=== PATIENT | female | born 1950 | race Caucasian/White ===

== ENCOUNTER 2016-05-22 10:50 | Emergency (ER) | payer MEDICARE ==
[~2016-05-22] VITALS: Ht 149.9 cm; Wt 72.1 kg
[~2016-05-22 10:50] MED LIST: AMBI10TA PO; CALTTAB5 PO; DIAZ10 PO; HYDR10TA16 PO; MEDR4PAK3 PO; METH10TA OR; METH10TA PO; METO25CR OR; METR0.7537 TOP; OMEP20CA5 PO; SUPETAB30 PO; TIZA4CAP PO; TUMS500C PO; VITA100018 OR; ZANTTAB9 PO; ZOLP10TA3; forteo IM
[2016-05-22 10:53] VITALS: BP 140/67; PULSE 72; RESP 18; TEMP 98.8; O2SAT 96
[2016-05-22] MEDS ORDERED: FLUT1SPR5 EACH NARE (11:30)
[2016-05-22] MEDS ORDERED: ZOFR8TAB PO (11:30)
[2016-05-22] MEDS ORDERED: MODA200T12 PO (11:30)
[2016-05-22] MEDS ORDERED: OXYC-395 PO (11:30)
[2016-05-22] MEDS ORDERED: SODIUM CHLORIDE 0.9% FLUSH 5 ML FLUSH IVF PRN (11:30)
[2016-05-22] MEDS ORDERED: DIAZ10 PO (11:30)
[2016-05-22] MEDS ORDERED: MAGICADU2 SWISH-SWAL (11:30)
[2016-05-22] MEDS ORDERED: LIDO1SOL8 SWISH-SWAL (11:30)
[2016-05-22] MEDS ORDERED: METO25TA6 PO (11:30)
[2016-05-22] MEDS ORDERED: ALBUAER3 INH (11:30)
[2016-05-22] MEDS ORDERED: REST0.05 EACH EYE (11:30)
[2016-05-22] MEDS ORDERED: NEUP480I2 SQ (11:30)
[2016-05-22] MEDS ORDERED: ACYC400T PO (11:30)
[2016-05-22] MEDS ORDERED: PRIL20CA9 PO (11:30)
[2016-05-22] MEDS ORDERED: ESTR0.5T PO (11:30)
[2016-05-22] MEDS ORDERED: METH10TA PO (11:30)
[2016-05-22] MEDS ORDERED: ESTR1TAB PO (11:30)
--- NOTE | 2016-05-22 11:35 | PD ---
HPI Chief Complaint: General Weakness Time Seen by Provider: 11:02 Travel History International Travel<30 days: No Contact w/Intl Traveler<30days: No Traveled to known affect area: No History of Present Illness HPI Is a 66-year-old woman who presents to the emergency department complaining of several days' worth of sharp left-sided chest pain, as well as some right sided chest pains, as well as tingling in her arms and her legs. Symptoms been on and off. She has multiple somatic complaints daily but feels this is different than any that pains are symptoms she typically has. States he can't place but it's from. There is no clear precipitants except that she noticed it a couple times when she was bending and twisting while working on her laptop. Symptoms lasted about 15-30 minutes and the come on. She has no history of coronary artery disease. She has extensive cardiac workups in the past for what sounds like palpitations that ended up being some trigeminy or bigeminy. She had a chemical stress test 2 years ago that was negative. She has AML which is in remission and she has mild dysplastic syndrome for which she gets Neupogen weekly. He otherwise has felt generally weak for the past week as well. History Past Medical History Narrative Medical History of AML in remission, myelodysplastic syndrome, receives Neupogen weekly , follows with Dr. Florez Previous diagnosis of "trigeminy" on EP study, takes metoprolol for suppression Hyperlipidemia LMP: MATTIE Menopausal: Yes Social History Alcohol Use: No Tobacco Use: No Allergies-Medications (Allergen,Severity, Reaction): Coded Allergies: Sudafed (Verified Allergy, Severe, TACHYCARDIA, ANXIETY, 05/22/16) Xylocaine (Verified Allergy, Mild, SWELLING, TURN PURPLE, 05/22/16) Ephedrine (Verified Allergy, Unknown, 05/22/16) Latex (Verified Allergy, Unknown, 05/22/16) SPINA BIFIDA Uncoded Allergies: ENABLEX (Allergy, Severe, SYNCOPE, CONFUSION, 07/12/07) Reported Meds & Prescriptions Reported Meds & Active Scripts Active Reported Estradiol 1 Mg Tab 1 Mg PO DAILY Estradiol 0.5 Mg Tab 0.5 Mg PO DAILY Oxycodone (Oxycodone HCl) 10 Mg Tab 10 Mg PO Q6HR Methadone (Methadone HCl) 10 Mg Tab 25 Mg PO BID Metoprolol Succinate ER 24 HR (Metoprolol Succinate) 25 Mg Tab 25 Mg PO DAILY Restasis Opth Drops (Cyclosporine Opth Drops) 0.05% Emul 1 Drop EACH EYE BID Neupogen Inj (Filgrastim) 480 Mcg/0.8 Ml Syr 480 Mcg SQ WEEKLY Proair Hfa 8.5 GM Inh (Albuterol Sulfate) 90 Mcg/Act Aer 2 Puff INH Q4-6H PRN 108 mcg/actuation Flonase Nasal [place] (Fluticasone Nasal [place]) 50 Mcg/Act [place] 50 Mcg EACH NARE BID Valium (Diazepam) 10 Mg Tab 10 Mg PO TID PRN Acyclovir 400 Mg Tab 400 Mg PO BID Prilosec (Omeprazole) 20 Mg Cap 20 Mg PO DAILY Modafinil 200 Mg Tab 200 Mg PO BID Zofran (Ondansetron HCl) 8 Mg Tab 8 Mg PO TID PRN Lidocaine Viscous Liq 2 % Liqd 5 Ml SWISH-SWAL DIRECTED PRN Magic Mouthwash Adult Liq (Multi-Ingredient Mouthwash/Gargle) 120 Ml Susp 5 Ml SWISH-SWAL ACHS Each 5mL contains: Nystatin 200,000units, Diphenhydramine 4.25mg, Viscous Lidocaine 10mg, Fry syrup 0.8 mL Review of Systems Except as stated in HPI: all other systems reviewed are Neg Physical Exam Narrative GENERAL: Pleasant 66-year-old woman, very talkative, no acute distress. SKIN: Warm and dry. HEAD: Atraumatic. Normocephalic. EYES: Pupils equal and round. No scleral icterus. No injection or drainage. ENT: No nasal bleeding or discharge. Mucous membranes pink and moist. NECK: Trachea midline. No JVD. CARDIOVASCULAR: Regular rate and rhythm. No murmur appreciated. Tenderness in the anterior chest wall. RESPIRATORY: No accessory muscle use. Clear to auscultation. Breath sounds equal bilaterally. GASTROINTESTINAL: Abdomen soft, non-tender, nondistended. Hepatic and splenic margins not palpable. MUSCULOSKELETAL: No obvious deformities. No edema. NEUROLOGICAL: Awake and alert. No obvious cranial nerve deficits. Motor grossly within normal limits. Normal speech. Data Data Last Documented VS Vital Signs Date Time Temp Pulse Resp B/P Pulse Ox O2 Delivery O2 Flow Rate FiO2 05/22/16 11:56 64 20 138/75 99 05/22/16 10:53 98.8 Orders Electrocardiogram (05/22/16 11:28) Complete Blood Count With Diff (05/22/16 11:28) Comprehensive Metabolic Panel (05/22/16 11:28) Troponin I (05/22/16 11:28) Lipase (05/22/16 11:28) Ecg Monitoring (05/22/16 11:28) Iv Access Insert/Monitor (05/22/16 11:28) Oximetry (05/22/16 11:28) Oxygen Administration (05/22/16 11:28) Sodium Chloride 0.9% Flush (Ns Flush) (05/22/16 11:30) Chest, Pa & Lat (05/22/16 11:28) Urinalysis - C+S If Indicated (05/22/16 11:28) Urine Culture (05/22/16 11:40) Labs Laboratory Tests Test 05/22/16 11:40 White Blood Count 4.2 TH/MM3 Red Blood Count 3.68 MIL/MM3 Hemoglobin 12.7 GM/DL Hematocrit 38.1 % Mean Corpuscular Volume 103.7 FL Mean Corpuscular Hemoglobin 34.6 PG Mean Corpuscular Hemoglobin 33.4 % Concent Red Cell Distribution Width 15.2 % Platelet Count 77 TH/MM3 Mean Platelet Volume 9.8 FL Neutrophils (%) (Auto) % CBC Comment AUTO DIFF Urine Color YELLOW Urine Turbidity CLEAR Urine pH 6.0 Urine Specific Pierce 1.024 Urine Protein NEG mg/dL Urine Glucose (UA) NEG mg/dL Urine Ketones NEG mg/dL Urine Occult Blood SMALL Urine Nitrite NEG Urine Bilirubin NEG Urine Leukocyte Esterase NEG Urine RBC 4-9 /hpf Urine WBC 0-2 /hpf Urine Squamous Epithelial 0-5 /hpf Cells Urine Bacteria MOD /hpf Urine Mucus MOD /lpf Microscopic Urinalysis Comment CULTURE INDICATED Sodium Level 142 MEQ/L Potassium Level 3.9 MEQ/L Chloride Level 104 MEQ/L Carbon Dioxide Level 30.1 MEQ/L Anion Gap 8 MEQ/L Blood Urea Nitrogen 8 MG/DL Creatinine 0.84 MG/DL Estimat Glomerular Filtration 68 ML/MIN Rate Random Glucose 91 MG/DL Calcium Level 8.7 MG/DL Total Bilirubin 0.5 MG/DL Aspartate Amino Transf 14 U/L (AST/SGOT) Alanine Aminotransferase 17 U/L (ALT/SGPT) Alkaline Phosphatase 59 U/L Troponin I LESS THAN 0.02 NG/ML Total Protein 7.3 GM/DL Albumin 3.5 GM/DL Lipase 67 U/L [facility] Medical Decision Making Medical Screen Exam Complete: Yes Emergency Medical Condition: Yes Interpretation(s) CBC unremarkable CMP unremarkable Troponin negative Lipase negative UA with a little bit hematuria, moderate bacteria, no pyuria. Sent for culture. Chest x-ray negative My review of EKG sinus bradycardia at 58, leftward axis, normal intervals, inferior Q waves, no other evidence of acute ischemia. Differential Diagnosis Chest wall pain, ACS, PE, strain or sprain, anxiety, other Narrative Course Medical decision making This 66-year-old woman who presents to the emergency department with intermittent chest pain. Symptoms are nonexertional. Symptoms brought on by certain movements. She would suggest a musculoskeletal etiology. Patient is somewhat somatically preoccupied, little bit unusual and brings stacks of papers with her to telemetry her medical history and often goes on long explanations about previous medical interactions using jargon extensively. I don't think this is likely from her heart. She overall looks well. She's had negative cardiac workups in the past. We will check labs chest x-ray EKG, recommend outpatient follow-up with her primary doctor, and cardiology. Diagnosis Primary Impression: Chest pain Additional Instructions: Follow-up with your primary doctor or with your institutional research coordinator next week. Return to the emergency department for any new or worsening symptoms. Disposition: 01 DISCHARGE HOME Condition: Stable Lester Torrez MD May 22, 2016 11:34
[2016-05-22 11:51] VITALS: O2SAT 97
[2016-05-22 11:53] LABS: BLOOD, URINE SMALL (NEG); GLUCOSE,URINE NEG (NEG); KETONE, URINE NEG (NEG); NITRITE,URINE NEG (NEG)
[2016-05-22 11:55] LABS: HEMATOCRIT 38.1 % (35.0-46.0); MEAN CELL VOLUME 103.7 FL (80.0-100.0); MEAN CORPUSCULAR HEMOGLOBIN 34.6 PG (27.0-34.0); MEAN CORPUSCULAR HGB CONC 33.4 % (32.0-36.0); PLATELET COUNT 77 TH/MM3 (150-450); RED BLOOD COUNT 3.68 MIL/MM3 (4.00-5.30); RED CELL DISTRIBUTION WIDTH 15.2 % (11.6-17.2); WHITE BLOOD COUNT 4.2 TH/MM3 (4.0-11.0)
[2016-05-22 11:56] VITALS: BP 138/75; PULSE 64; RESP 20; O2SAT 99
[2016-05-22 11:57] LABS: HEMO FLAGS AUTO DIFF
--- NOTE | 2016-05-22 11:57 | RADHPO ---
EXAM DATE/TIME: 05/22/2016 11:37 [facility] COMPARISON: No previous studies available for comparison. INDICATIONS : Chest pain MEDICAL HISTORY : Myelodysplastic syndrome SURGICAL HISTORY : Infusaport ENCOUNTER: Initial ACUITY: 4 - 6 days PAIN SCORE: 3/10 LOCATION: Left chest FINDINGS: PA and lateral views of the chest demonstrate the lungs to be symmetrically aerated without evidence of mass, infiltrate or effusion. [id number] is in good position. The cardiomediastinal contours are unremarkable. Evidence for previous kyphoplasty is noted. CONCLUSION: Negative for acute disease. Raleigh Pagan MD FACR on May 22, 2016 at 11:55 Board Certified Radiologist. This report was verified electronically.
[2016-05-22 11:58] LABS: CHLORIDE 104 MEQ/L (98-107); POTASSIUM 3.9 MEQ/L (3.5-5.1); SODIUM (NA) 142 MEQ/L (136-145)
[2016-05-22 12:02] LABS: ANION GAP 8 MEQ/L (5-15); BICARBONATE 30.1 MEQ/L (21.0-32.0); BLOOD UREA NITROGEN 8 MG/DL (7-18)
[2016-05-22 12:03] LABS: URINE COLOR YELLOW (YELLW/STRAW)
[2016-05-22 12:04] LABS: ALT (GPT) 17 U/L (10-53)
[2016-05-22 12:05] LABS: AST (GOT) 14 U/L (15-37); GLOMERULAR FILTRATION RATE 68 ML/MIN (>89); MUCUS URINE MOD /lpf (OCC); WBC, URINE 0-2 /hpf (0-5)
[2016-05-22 12:06] LABS: TOTAL BILIRUBIN ADULT 0.5 MG/DL (0.2-1.0)
[2016-05-22 12:07] LABS: BACTERIA, URINE MOD /hpf; COMMENT (UR) CULTURE INDICATED; CULTURE IF INDICATED CULTURE INDICATED; SQUAMOUS EPITHELIAL CELL URINE 0-5 /hpf (0-5)
[2016-05-22 12:08] LABS: ALKALINE PHOSPHATASE 59 U/L (45-117)
[2016-05-22 13:25] LABS: BANDS 5 % (0-6); METAMYELOCYTES 1 % (0-1); NEUTROPHIL # MANUAL DIFF 0.5 TH/MM3 (1.8-7.7); POLYS (SEG NEUTROPHILS) 5 % (16-70); WBC DIFF SAMPLE 100
[2016-05-22 13:38] LABS: OVALOCYTES 1+ (NORMAL); PLATELET ESTIMATE SMEAR LOW (NORMAL); PLATELET MORPHOLOGY ENLARGED (NORMAL); SCAN/DIFF FINAL DIFF MANUAL
[2016-05-22 13:39] LABS: SLIDE REVIEW SPR
--- NOTE | 2016-05-22 21:42 | EKG ---
Date Performed: 05/22/2016 Time Performed: 11:49:04 PTAGE: 66 years EKG: Sinus bradycardia Leftward axis rSr'(V1) - probable normal variant Inferior infarct - age u ndetermined Septal T wave changes are nonspecific Abnormal ECG COMPARED TO PRIOR ELECTROCARDIOGRAM, T wave changes have mildly improved. PREVIOUS TRACING : 05/06/2011 06.22 DOCTOR: David Keen Interpretating Date/Time 05/22/2016 21:42:30
== END 2016-05-22 13:08 | disposition home or self-care (01) ==
LOC: PHED 10:50
DX: R07.9 Chest pain, unspecified (principal); C92.Z1 Other myeloid leukemia, in remission; D46.9 Myelodysplastic syndrome, unspecified; R94.31 Abnormal electrocardiogram [ECG] [EKG]; R82.99 Other abnormal findings in urine
CPT/HCPCS: 71020; 80053; 81001; 83690; 84484; 85007; 85027; 87086; 93005

== ENCOUNTER 2017-07-03 16:31 | Emergency (ER) | payer OTHER, MEDICARE ==
[~2017-07-03] VITALS: Ht 147.3 cm; Wt 55.0 kg
[~2017-07-03 16:31] MED LIST changes: +ACYC400T PO; +ALBUAER3 INH; -AMBI10TA PO; -CALTTAB5 PO; +ESTR0.5T PO; +ESTR1TAB PO; +FLUT1SPR5 EACH NARE; -HYDR10TA16 PO; +LIDO1SOL8 SWISH-SWAL; +MAGICADU2 SWISH-SWAL; -MEDR4PAK3 PO; -METH10TA OR; +METO1TAB42 PO; -METO25CR OR; -METR0.7537 TOP; +MODA200T12 PO; +NEUP480I2 SQ; -OMEP20CA5 PO; +OXYC-395 PO; +PRIL20CA9 PO; +REST0.05 EACH EYE; -SUPETAB30 PO; -TIZA4CAP PO; -TUMS500C PO; -VITA100018 OR; -ZANTTAB9 PO; +ZOFR8TAB PO; -ZOLP10TA3; -forteo IM
[2017-07-03] MEDS ORDERED: SODIUM CHLOR 0.9% 1000 ML INJ 1,000 ML IV SCH (16:46)
[2017-07-03 16:50] VITALS: BP 127/59; PULSE 72; RESP 18; TEMP 97.8
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
[2017-07-03] MEDS ORDERED: SODIUM CHLORIDE 0.9% FLUSH 10 ML FLUSH IVF PRN (17:00)
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
[2017-07-03] MEDS ORDERED: HYDR500C PO (17:06)
[2017-07-03] MEDS ORDERED: ALLO300T2 PO (17:06)
[2017-07-03 17:23] LABS: HEMOGLOBIN 9.7 GM/DL (11.6-15.3); MEAN CELL VOLUME 99.3 FL (80.0-100.0); MEAN CORPUSCULAR HGB CONC 33.3 % (32.0-36.0); MEAN PLATELET VOLUME 9.1 FL (7.0-11.0); PLATELET COUNT 51 TH/MM3 (150-450); RED BLOOD COUNT 2.92 MIL/MM3 (4.00-5.30); RED CELL DISTRIBUTION WIDTH 17.7 % (11.6-17.2)
[2017-07-03 17:28] VITALS: O2SAT 97
[2017-07-03 17:33] LABS: BICARBONATE 28.8 MEQ/L (21.0-32.0)
[2017-07-03 17:36] LABS: CREATININE 0.7 MG/DL (0.50-1.00)
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
[2017-07-03] MEDS ORDERED: FISH100020 (17:46)
[2017-07-03] MEDS ORDERED: PYRI100T PO (17:46)
[2017-07-03] MEDS ORDERED: VITA100064 PO (17:46)
[2017-07-03] MEDS ORDERED: CALC600T10 PO (17:46)
[2017-07-03] MEDS ORDERED: PRIL20TA2 PO (17:46)
[2017-07-03] MEDS ORDERED: MULT-65 PO (17:46)
[2017-07-03] MEDS ORDERED: VITA100021 SL (17:46)
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
[2017-07-03 17:53] VITALS: BP 125/58; PULSE 77; RESP 18; O2SAT 99
[2017-07-03 17:54] LABS: INTERNATIONAL NORMALIZED RATIO 1.1 RATIO; PROTHROMBIN TIME - PATIENT 11.5 SEC (9.8-11.6)
[2017-07-03 17:59] LABS: CORRECTED NUCLEATED RBC 2 /100 WBC (0-0); LYMPHOCYTES 43 % (9-44); MONOCYTES 36 % (0-8); NEUTROPHIL # MANUAL DIFF 1.1 TH/MM3 (1.8-7.7); NUCLEATED RED BLOOD CELL 2 (0-0); POLYS (SEG NEUTROPHILS) 21 % (16-70)
[2017-07-03 18:00] LABS: ACANTHOCYTES OCC (NORMAL); OVALOCYTES 1+ (NORMAL)
[2017-07-03] MEDS ORDERED: POTASSIUM CHLORIDE 10 MEQ CONTROLLED RELEASE TAB PO ONE (18:30)
[2017-07-03 18:55] VITALS: BP 122/65
== END 2017-07-03 19:03 | disposition home or self-care (01) ==
LOC: PHED 16:31
DX: S00.31XA Abrasion of nose, initial encounter (principal); V47.5XXA Car driver injured in collision with fixed or stationary object in traffic accident, initial encounter; R04.0 Epistaxis; R51 Headache; D69.6 Thrombocytopenia, unspecified; E87.6 Hypokalemia; C92.01 Acute myeloblastic leukemia, in remission; I10 Essential (primary) hypertension; I48.91 Unspecified atrial fibrillation
CPT/HCPCS: 70450; 70486; 71045; 72125; 80048; 85007; 85027; 85610; 85730; 96360; 99285; J7030